=== PATIENT | male | born 1995 | race Hispanic/Latino ===

== ENCOUNTER 2024-02-17 09:31 | Emergency (ER) | payer OTHER ==
[~2024-02-17] VITALS: Ht 160 cm; Wt 73.9 kg
[2024-02-17 10:31] LABS: BASOPHILS # (AUTO) 0.06 K/uL (0.00-0.20); BASOPHILS % (AUTO) 0.7 % (0.0-5.0); EOSINOPHILS # (AUTO) 0.19 K/uL (0.00-0.70); EOSINOPHILS % (AUTO) 2.1 % (0.0-8.0); HEMATOCRIT 49.7 % (42-54); IMMATURE GRANULOCYTE ABSOLUTE 0.03 K/uL (0-1); LYMPHOCYTES # (AUTO) 1.3 K/uL (1.0-4.8); LYMPHOCYTES % (AUTO) 14.3 % (21.0-51.0); MEAN CORPUSCULAR HEMOGLOBIN 28.6 pg (27.0-33.0); MEAN CORPUSCULAR HGB CONC 33.8 g/dL (32.0-36.0); MEAN CORPUSCULAR VOLUME 84.5 fL (79-99); MONOCYTES # (AUTO) 0.7 K/uL (0.1-1.0); MONOCYTES % (AUTO) 8.1 % (3.0-13.0); NEUTROPHILS # (AUTO) 6.8 K/uL (1.8-7.7); NEUTROPHILS % (AUTO) 74.5 % (40.0-77.0); PLATELET COUNT (AUTO) 297 K/uL (130-400); RED BLOOD CELL COUNT(AUTO) 5.88 MIL/uL (4.50-6.20); RED CELL DISTRIBUTION WIDTH 12.8 % (11.0-15.5); WHITE BLOOD COUNT (AUTO) 9.2 K/uL (4.8-10.8)
[2024-02-17 11:03] LABS: BILIRUBIN,TOTAL 0.7 mg/dL (0.2-1.0); CREATININE 0.7 mg/dL (0.5-1.3); POTASSIUM 3.7 mmol/L (3.5-5.1); TOTAL PROTEIN, SERUM 8.4 g/dL (6.0-8.3)
[2024-02-17] MEDS: PANTOPRAZOLE 40 MG TAB DR PO ONE (12:09)
[2024-02-17] MEDS: DIAZEPAM 5 MG TABLET PO ONE (12:09)
[2024-02-17] MEDS: ACETAMINOPHEN 500 MG TABLET PO ONE (12:10)
[2024-02-17] MEDS: COLCHICINE 0.6 MG TABLET PO ONE (13:22)
[2024-02-17] MEDS ORDERED: PANT40TA PO (13:25)
[2024-02-17] MEDS ORDERED: COLC0.6C3 PO (13:25)
[2024-02-17] MEDS ORDERED: CYCL-309 PO (13:27)
[2024-02-17 13:45] VITALS: BP 135/85; PULSE 80; RESP 16; O2SAT 95
== END 2024-02-17 13:48 | disposition home or self-care (01) ==
LOC: EDH 09:31
DX: M25.50 Pain in unspecified joint (principal); M62.838 Other muscle spasm; Z88.6 Allergy status to analgesic agent
CPT/HCPCS: 36415; 71046; 72125; 80053; 82550; 84550; 85025; 93005